=== PATIENT | female | born 1955 | race Caucasian/White ===

== ENCOUNTER 2016-11-30 19:36 | Emergency (ER) | payer MEDICARE, BC ==
[2016-11-30 19:44] VITALS: BP 170/81
--- NOTE | 2016-11-30 19:54 | ERNOTE ---
Upper Extremity HPI - Narrative Date of Service: 11/30/16 - General Extremities Pain Location: shoulder: right Time Seen by Provider: 11/30/16 19:46 Source: patient Exam Limitations: no limitations - Immun/Allergies/Home Medications Immunizations: IMMUNIZATION HX Immunizations Up to Date Yes History of Influenza Vaccine Yes Hx Pneumococcal Vaccination Yes Allergies/Adverse Reactions: Allergies Allergy/AdvReac Type Severity Reaction Status Date / Time mirtazapine [From Remeron] AdvReac Mild insomnia, Verified 11/30/16 19:43 nausea Home Medications: HOME MEDICATIONS Aspirin 325 mg PO DAILY 12/08/12 [Last Taken Unknown] Atorvastatin Calcium 20 mg PO DAILY 12/08/12 [Last Taken Unknown] Mycophenolate Mofetil [Cellcept] 500 mg PO BID 12/14/14 [Last Taken Unknown] Tacrolimus Anhydrous [Prograf] 0.5 mg PO BID 12/14/14 [Last Taken Unknown] predniSONE [Prednisone] 5 mg PO DAILY 12/14/14 [Last Taken Unknown] Cholecalciferol (Vitamin D3) [Vitamin D3] 50,000 unit PO 2XW 02/21/15 [Last Taken Unknown] Ferrous Sulfate [Iron] 325 mg PO TID 03/05/15 [Last Taken Unknown] Multivitamin [Poly-Vitamin] 1 each PO DAILY 03/05/15 [Last Taken Unknown] Estrogens, Conjugated [Premarin Cream] 1 appl VG 3XW 04/05/15 [Last Taken Unknown] Oxyquinoline/Sod.lauryl Sulfat [Trimo-Monk Jelly] 113.4 gm VG 2XW 04/05/15 [Last Taken Unknown] Sucralfate [Carafate] 1 gm PO BID 04/05/15 [Last Taken Unknown] Calcium Carbonate [Tums] 1,000 mg PO QID #120 tab.chew 04/09/15 [Last Taken Unknown] Cefuroxime Axetil [Ceftin] 500 mg PO BID #60 tab 04/09/15 [Last Taken Unknown] Magnesium Oxide [Mag-Ox 400] 400 mg PO QID #120 tablet 04/09/15 [Last Taken Unknown] Metoprolol Tartrate [Lopressor] 50 mg PO BID #60 tablet 04/09/15 [Last Taken Unknown] - History of Present Illness Narrative: Pt. comes in with c/o R shoulder decreased mobility for an hour. Pt. states tath she was making a bed and all of a sudden could not lift her arm. Pt. denies any pain, numbness, ot tingling. Pt. denies any alleviating factors or prehospital treatment. Pt. is a kidney transplant pt and has a hx of fractured shoulder repair with ORIF. Review of Systems - Review of Systems Constitutional: Present: no symptoms reported. Absent: recent illness, fever, chills, weakness, fatigue EYE: Present: no symptoms reported ENT: Present: no symptoms reported Respiratory: Present: no symptoms reported. Absent: shortness of breath, cough , wheezing Cardiology: Present: no symptoms reported. Absent: chest pain, palpitations, edema Gastrointestinal/Abdominal: Present: no symptoms reported. Absent: nausea, vomiting, diarrhea Genitourinary: Present: no symptoms reported Musculoskeletal: Present: other - R shoulder decreased ROM Skin: Present: no symptoms reported. Absent: rash, change in color Neurological: Present: no symptoms reported. Absent: headache, dizziness/light- headedness, numbness, tingling All Other Systems: All systems neg except as marked - Patient's Past Medical History Patient History - Medical: Anemia, Cataracts, Depression, GERD, Renal Failure Patient History - Cardiac/Respiratory: Angina, Arrhythmias, Hypertension, Hyperlipidemia, Myocardial Infarction Patient History - Cancer: No Hx of Cancer Patient History - Surgical Procedures: Appendectomy, Cataracts, Colonoscopy, Cardiac stent, Tubal Ligation, Other Patient History - Other: None - Family History Mother Family History - Medical: , Alzheimer's Disease Father Family History - Medical: Family History - Cardiac/Respiratory: Myocardial Infarction - Social History Living Situations: home Abuse History: No History of abuse Psych History: No pertinent hx Smoking Status: Former smoker Alcohol Use: none Drug Use: none - Immunizations Immunizations Up to Date: Yes Hx Pneumococcal Vaccination: Yes History of Influenza Vaccine: Yes Physical Exam - Physical Exam General Appearance: Present: wd/wn, alert, no apparent distress Eye Exam: Normal inspection: bilateral, PERRL: bilateral, EOMI: bilateral Neck: Present: normal inspection Respiratory: Present: no respiratory distress, normal breath sounds, no accessory muscle use, chest nontender, lungs clear Cardiovascular/Chest: Present: regular rate, rhythm, no murmur, normal peripheral pulses Extremity Exam: Present: normal inspection, non-tender, normal range of motion, no edema, bony tenderness - Humoral head Neurological Exam: Present: alert, oriented, normal mood/affect, no motor/ sensory deficits Skin Exam: Present: normal color, warm/dry. Absent: pallor, skin rash ED Progress - Date and Time Seen: Date and Time: 11/30/16 20:38 There is no muscle shortening in shoulder but humerus is definitly sublexed inferiorly so will put pt. in sling and have her follow up with ortho. - Vital Signs Patient's Vital Signs:: I have reviewed the patient's vital signs. Vital Signs: Vital Signs 11/30/16 19:37 Temperature 36.8 C Pulse Rate 62 Respiratory 18 Rate Blood Pressure 170/81 O2 Sat by Pulse 99 Oximetry - X-Ray X-Ray #1 X-Ray: shoulder Interpretation: Reviewed by me X-ray Comments: inferiorly subleded humeral head. No obvious acute ossious abnormality - Progress/Reassessment Chief Complaint: Shoulder Injury/Pain Progress:: Pain free at discharge Departure Clinical Impression: Shoulder subluxation, right Qualifiers: Encounter type: initial encounter Qualified Code(s): S43.001A - Unspecified subluxation of right shoulder joint, initial encounter - Departure Disposition: Home self-care Condition: Good Instructions: Biceps Tendon Subluxation-MIRELA Acosta for Routine Care of Injuries, [id number] Additional Instructions: Please call orthopedics for appointment tomorrow morning they will see you sometime this week. Please wear sling at all times. Referrals: Philip Mason MD [Staff Physician] -
== END 2016-11-30 21:00 | disposition home or self-care (01) ==
LOC: ER 19:36
DX: S43.001A Unspecified subluxation of right shoulder joint, initial encounter (principal); Z87.891 Personal history of nicotine dependence

== ENCOUNTER 2018-12-31 16:24 | Observation (INO) ==
[2018-12-31] MEDS ORDERED: MORPHINE SULFATE 2 MG/ML DISP.SYRIN IV ONE (16:41)
[2018-12-31] MEDS ORDERED: ASPIRIN 81 MG TAB.CHEW PO ONE (16:41)
[2018-12-31] MEDS ORDERED: NITROGLYCERIN 0.4 MG/TAB BTL SL ONE (16:41)
[2018-12-31] MEDS ORDERED: DILTIAZEM HCL 5 MG/ML VIAL IV ONE (16:41)
[2018-12-31] MEDS ORDERED: DILTIAZEM HCL 125 MG in DEXTROSE 5 % IN WATER 100 ML IV PRN ×2 (16:54)
[2018-12-31 16:57] LABS: Hematocrit 33.6 % (37.0-47.0); Hemoglobin 10.3 gm/dL (12.5-16.0); Mean Cell Volume 106.3 fl (78-100); Mean Corpuscular Hemoglobin 32.6 pg (27-31); Mean Corpuscular Hgb Conc 30.7 g/dl (32-36); Mean Platelet Volume 11.3 fl (8-12.5); Neutrophil # 6.7 K/mm3 (1.3-6.0); Neutrophil % 66.6 % (42-75.0); Platelet Count 148 K/mm3 (150-450); Red Blood Count 3.16 M/mm3 (4.2-5.4); White Blood Count 10.1 K/mm3 (4.0-10.5)
[2018-12-31 17:18] LABS: ALT 20 U/L (19-67); AST 23 U/L (0-48); Albumin * 3.5 gm/dl (3.4-5.0); Alkaline Phosphatase * 88 U/L (50-170); Anion Gap 19.6 mmol/L (6.8-13.8); BUN/Creatinine Ratio 11.6 (9.0-21.6); Bilirubin, Total 0.4 mg/dL (0.0-1.1); Blood Urea Nitrogen 17 mg/dL (3-23); Ca. Corrected For Albumin 7.5 mg/dL (8.4-10.2); Calcium * 7.4 mg/dL (7.9-10.9); Chloride 104 mmol/L (97-106); Glucose * 119 mg/dL (70-110); Magnesium 0.6 mg/dL (1.2-2.8); Potassium 3.6 mmol/L (3.4-4.6); Sodium 139 mmol/L (132-142); TSH * 1.421 uIU/mL (0.358-3.74); Total Protein 6.3 gm/dL (6.2-8.2); Troponin I Less than 0.017 ng/mL (0.00-0.10)
[2018-12-31] MEDS ORDERED: MAGNESIUM SULFATE IN WATER 50 ML IV ONE (18:00)
--- NOTE | 2018-12-31 18:56 | ERNOTE ---
Chest Pain/Cardiac HPI Date of Service: 12/31/18 Chief Complaint: Chest Pain Time Seen by Provider: 12/31/18 16:36 Source: patient Exam Limitations: no limitations Immunizations: IMMUNIZATION HX Immunizations Up to Date Yes History of Influenza Vaccine Yes Hx Pneumococcal Vaccination Yes Allergies/Adverse Reactions: Allergies mirtazapine [From Remeron] Adverse Reaction (Mild, Verified 12/31/18 16:32) insomnia, nausea Home Medications: HOME MEDICATIONS Mycophenolate Mofetil [Cellcept] 500 mg PO BID 12/14/14 [Last Taken Unknown] Tacrolimus Anhydrous [Prograf] 0.5 mg PO BID 12/14/14 [Last Taken Unknown] predniSONE [Prednisone] 5 mg PO DAILY 12/14/14 [Last Taken Unknown] aspirin 81 mg chewable tablet 81 mg PO DAILY 12/17/17 [Last Taken Unknown] atorvastatin 20 mg tablet 20 mg PO DAILY #90 tab 05/27/18 [Last Taken Unknown] pantoprazole 40 mg tablet,delayed release 40 mg PO DAILY 90 Days #90 tab 06/23/18 [Last Taken Unknown] ergocalciferol (vitamin D2) 50,000 unit capsule 50,000 unit PO Q2W #14 cap 07/09/18 [Last Taken Unknown] enalapril maleate 10 mg tablet 10 mg PO DAILY #30 tab 07/30/18 [Last Taken Unknown] metoprolol tartrate 50 mg tablet 50 mg PO DAILY #30 tab 07/30/18 [Last Taken Unknown] ferrous sulfate 325 mg (65 mg iron) tablet 325 mg PO TID #270 tab 09/23/18 [Last Taken Unknown] Calcium Carbonate [Tums] 1,000 mg PO QID PRN 12/31/18 [Last Taken Unknown] Narrative: Patient began to have left sided anterior chest pain an hour ago. Never had anything like this before. Antimony a little lightheaded with it. No pleuritic pain. Mild SOB. No nausea or diaphoresis. Constant, no radiation. Has not had this type of pain before. nothing makes it better or worse. Timing: constant Severity/Quality: moderate Location: left chest Chest Pain Radiation: no radiation Activities at Onset: none Modifying Factors - Improves: Present: nothing Modifying Factors - Worsens: Present: nothing Nitro Today/Relief: no nitro taken today Associated Symptoms: Absent: syncope, cough, diaphoresis, fever/chills Prior Chest Pain/Cardiac Workup: Reports: other - patient denies stents or prior heart attack but this is noted inteh chart Prior Treatment: Denies: recently seen Review of Systems - Review of Systems Constitutional: Absent: fever ENT: Absent: sore throat Respiratory: Present: shortness of breath Cardiology: Present: chest pain Gastrointestinal/Abdominal: Absent: abdominal pain Genitourinary: Absent: dysuria Neurological: Absent: weakness All Other Systems: All systems neg except as marked Medical History (Updated 12/31/18 @ 18:47 by Tomi Bee MD) Anemia, iron deficiency Onset Date: ~01/06/15 Anemia Onset Date: Unknown Arrhythmia Onset Date: Unknown Depression Onset Date: ~12/01/14 Essential hypertension Onset Date: Unknown Heart murmur Onset Date: Unknown Hypercholesterolemia Onset Date: Unknown Hyperlipidemia Onset Date: Unknown Hypovitaminosis D Onset Date: ~01/06/15 PUD (peptic ulcer disease) Onset Date: Unknown Renal failure, chronic Onset Date: ~07/03/09 DR CONLEY Stable angina Onset Date: Unknown Uterovaginal prolapse, incomplete Onset Date: Unknown Blood transfusion, without reported diagnosis Onset Date: ~06/25/09 [facility] 2014 Cystocele with uterine prolapse Onset Date: Unknown Diarrhea Onset Date: ~03/16/15 Gastritis Onset Date: ~03/16/15 Interstitial nephritis Onset Date: Unknown Myocardial infarction Onset Date: ~1999 dr ulrich [facility] Rectocele Onset Date: Unknown Right shoulder injury Onset Date: ~07/26/01 dr collins right shoulder injury slipping on ice Urinary tract infection Onset Date: ~07/02/15 Surgical History: Surgical History (Updated 11/02/18 @ 12:51 by PAUL Contreras) Fitting and adjustment of pessary Onset Date: Unknown H/O abdominal aortic aneurysm repair Onset Date: Unknown H/O mastectomy Onset Date: Unknown H/O shoulder surgery Onset Date: ~2001 humerus fracture with pin placement Dr. Collins History of appendectomy Onset Date: Unknown History of cardiac catheterization Onset Date: ~1999 Dr Ulrich [facility] History of cataract surgery Onset Date: ~12/13/12 12/13/12 left, 02/07/13 right History of cervical biopsy Onset Date: Unknown History of colonoscopy Onset Date: ~04/25/10 [place] 2010 hyperplastic, 2015 negative recheck 10 years History of endoscopy Onset Date: Unknown History of esophagogastroduodenoscopy (EGD) Onset Date: Unknown History of hysterectomy Onset Date: Unknown History of open reduction and internal fixation (ORIF) procedure Onset Date: ~07/27/01 dr collins humeral head fracture and ORIF right shoulder History of oral surgery Onset Date: ~2010 all teeth pulled and dentures placed History of removal of retained hardware Onset Date: ~12/16/[address] collins History of tubal ligation Onset Date: ~09/23/01 Dr. Cortes Hx of cholecystectomy Onset Date: Unknown Hx of tonsillectomy Onset Date: Unknown Kidney transplant recipient Onset Date: ~05/04/12 Kidney transplant status Onset Date: ~11/12/11 S/P dialysis catheter insertion Onset Date: Unknown Family History: Family History (Updated 12/12/17 @ 09:14 by Marycruz Au [facility]) Brother Alive and well Father , 62 Heart disease Coronary artery disease Mother , 79 Alzheimers disease Sister Hx of heart artery stent 2 sisters 1 w/ heart stent Social History: (Last Reviewed 12/31/18 @ 18:53 by Tomi Bee MD) Social History: adopted: No foster care: No fpc: No Marital status: / lives independently: Yes household members: children number of children: 3 caregiver/support person: Yes current occupational status: employed 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 [employer] current occupational exposures/hazards: No Highest education level completed: high school graduate Service: No Tobacco: Smoking Status: Never smoker Tobacco: How many years used: 25 Alcohol: alcohol intake: former Substance Use: substance use type: does not use Dietary Habits: caffeine: No Exercise: Physical activity type: other Personal Safety: victim of physical abuse: No victim of emotional abuse: No Physical Exam - Physical Exam General Appearance: Present: alert, no apparent distress Head Exam: Present: normal inspection, no evidence of injury Eye Exam: Normal inspection: bilateral, PERRL: bilateral Ears, Nose, Throat: Present: normal ENT inspection Neck: Present: normal inspection Respiratory: Present: no respiratory distress, normal breath sounds, no accessory muscle use, chest nontender, lungs clear Cardiovascular/Chest: Present: normal peripheral pulses, tachycardia, irregularly irregular Gastrointestinal/Abdominal: Present: normal bowel sounds, nontender, nondistended, soft Back Exam: Absent: CVA tenderness (R), CVA tenderness (L) Extremity Exam: Present: normal inspection, no edema Neurological Exam: Present: alert, no motor/sensory deficits Skin Exam: Present: normal color, warm/dry Progress - Results and Orders Patient's Lab Results:: I have reviewed the patient's lab results. - Vital Signs Patient's Vital Signs:: I have reviewed the patient's vital signs. Vital Signs: Vital Signs 12/31/18 16:25 12/31/18 16:43 12/31/18 16:50 Temperature 36.2 C Pulse Rate 126 H 123 H 135 H Respiratory Rate 17 24 H Blood Pressure 149/102 H 140/71 140/71 O2 Sat by Pulse Oximetry 100 100 12/31/18 16:51 12/31/18 16:55 12/31/18 16:59 Temperature Pulse Rate 129 H 106 H 96 Respiratory Rate 27 H 24 H Blood Pressure 115/54 83/41 L 88/41 L O2 Sat by Pulse Oximetry 100 100 100 12/31/18 17:02 12/31/18 17:05 12/31/18 17:18 Temperature Pulse Rate 103 H 102 H 98 Respiratory Rate 19 22 H 30 H Blood Pressure 73/39 L 71/43 L 102/43 O2 Sat by Pulse Oximetry 100 100 100 12/31/18 17:20 12/31/18 17:22 Temperature Pulse Rate 79 97 Respiratory Rate 26 H 30 H Blood Pressure 103/54 102/47 O2 Sat by Pulse Oximetry 100 100 - EKG EKG #1 EKG read: Interp. by me EKG Comments: A fib RVR, non-specific ST/T wave changes, no STEMI EKG #2 EKG: atrial fibrillation EKG read: Interp. by me EKG Comments: A fib, rate improved to 88. Non-specific changes, improved from prior no STEMI noted. - X-Ray X-Ray #1 X-Ray: chest Interpretation: Interp. by me X-ray Comments: No real time radiology reads. No acute process by my interp. - Progress/Reassessment Chief Complaint: Chest Pain Progress Note-Subjective: 12/31/18 18:54 Patient given cardizem ASA and NTG with normalization of rate and resolution of chest pain. Nothing at this point to suggest STEMI or PE or aortic dissection. I spoke with Dr Romero who saw the patient in the ED and admitted him to the hospital. Departure Clinical Impression: Atrial fibrillation with RVR, Chest pain, Hypomagnesemia - Departure Disposition: Still a patient Condition: Stable
--- NOTE | 2018-12-31 19:19 | HP ---
Chief Complaint - Chief Complaint Date of Service: 12/31/18 Time of Service: 18:00 Chief Complaint: Chest pain x1 day History of Present Illness: 3-year-old female with a past medical history of anemia, arrhythmia, hypertension, depression, hyperlipidemia, myocardial infarct, chronic renal failure presents complaints of substernal chest pain x1 day. She states she was sitting in her home when she began having substernal chest pain which was associated with shortness of breath and dizziness. She presented to the emergency department and was found to be in A. fib with RVR. She was started on a Cardizem drip. She was also found to have low magnesium of 0.6 he was given magnesium in the emergency department. She responded well to the Cardizem drip and will be admitted for further evaluation and monitoring. Medical History (Updated 12/31/18 @ 18:47 by Tomi Bee MD) Anemia, iron deficiency Onset Date: ~01/06/15 Anemia Onset Date: Unknown Arrhythmia Onset Date: Unknown Depression Onset Date: ~12/01/14 Essential hypertension Onset Date: Unknown Heart murmur Onset Date: Unknown Hypercholesterolemia Onset Date: Unknown Hyperlipidemia Onset Date: Unknown Hypovitaminosis D Onset Date: ~01/06/15 PUD (peptic ulcer disease) Onset Date: Unknown Renal failure, chronic Onset Date: ~07/03/09 DR CONLEY Stable angina Onset Date: Unknown Uterovaginal prolapse, incomplete Onset Date: Unknown Blood transfusion, without reported diagnosis Onset Date: ~06/25/09 [facility] and 2014 Cystocele with uterine prolapse Onset Date: Unknown Diarrhea Onset Date: ~03/16/15 Gastritis Onset Date: ~03/16/15 Interstitial nephritis Onset Date: Unknown Myocardial infarction Onset Date: ~1999 dr ulrich [facility] Rectocele Onset Date: Unknown Right shoulder injury Onset Date: ~07/26/01 dr collins right shoulder injury slipping on ice Urinary tract infection Onset Date: ~07/02/15 Surgical History: Surgical History (Updated 11/02/18 @ 12:51 by PAUL Contreras) Fitting and adjustment of pessary Onset Date: Unknown H/O abdominal aortic aneurysm repair Onset Date: Unknown H/O mastectomy Onset Date: Unknown H/O shoulder surgery Onset Date: ~2001 humerus fracture with pin placement Dr. Collins History of appendectomy Onset Date: Unknown History of cardiac catheterization Onset Date: ~[address] [facility] History of cataract surgery Onset Date: ~12/13/12 12/13/12 left, 02/07/13 right History of cervical biopsy Onset Date: Unknown History of colonoscopy Onset Date: ~04/25/10 Josiahan 2010 hyperplastic, 2015 negative recheck 10 years History of endoscopy Onset Date: Unknown History of esophagogastroduodenoscopy (EGD) Onset Date: Unknown History of hysterectomy Onset Date: Unknown History of open reduction and internal fixation (ORIF) procedure Onset Date: ~07/27/01 dr collins humeral head fracture and ORIF right shoulder History of oral surgery Onset Date: ~2010 all teeth pulled and dentures placed History of removal of retained hardware Onset Date: ~12/16/[address] collins History of tubal ligation Onset Date: ~09/23/01 Dr. Cortes Hx of cholecystectomy Onset Date: Unknown Hx of tonsillectomy Onset Date: Unknown Kidney transplant recipient Onset Date: ~05/04/12 Kidney transplant status Onset Date: ~11/12/11 S/P dialysis catheter insertion Onset Date: Unknown Family History: Family History (Updated 12/12/17 @ 09:14 by Marycruz Au CMA) Brother Alive and well Father , 62 Heart disease Coronary artery disease Mother , 79 Alzheimers disease Sister Hx of heart artery stent 2 sisters 1 w/ heart stent Social History: (Last Reviewed 12/31/18 @ 18:53 by Tomi Bee MD) Social History: adopted: No foster care: No retirement: No Marital status: / lives independently: Yes household members: children number of children: 3 caregiver/support person: Yes current occupational status: employed 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 [employer] current occupational exposures/hazards: No Highest education level completed: high school graduate Service: No Tobacco: Smoking Status: Never smoker Tobacco: How many years used: 25 Alcohol: alcohol intake: former Substance Use: substance use type: does not use Dietary Habits: caffeine: No Exercise: Physical activity type: other Personal Safety: victim of physical abuse: No victim of emotional abuse: No Review Of Systems (GEN) - Review of Systems Generalized/Overall Review: Absent: Chills, Fever EENTM: Absent: Eye Pain Respiratory: Present: Shortness of Breath Cardiac: Present: Chest Pain Abdominal: Absent: Abdominal Pain Neurological: Present: Other - Dizziness Misc: All systems neg except as marked Immunizations: IMMUNIZATION HX Immunizations Up to Date Yes History of Influenza Vaccine Yes Hx Pneumococcal Vaccination Yes Allergies/Adverse Reactions: Allergies Allergy/AdvReac Type Severity Reaction Status Date / Time mirtazapine [From Remeron] AdvReac Mild insomnia, Verified 12/31/18 16:32 nausea Home Medications: HOME MEDICATIONS Mycophenolate Mofetil [Cellcept] 500 mg PO BID 12/14/14 [Last Taken Unknown] Tacrolimus Anhydrous [Prograf] 0.5 mg PO BID 12/14/14 [Last Taken Unknown] predniSONE [Prednisone] 5 mg PO DAILY 12/14/14 [Last Taken Unknown] aspirin 81 mg chewable tablet 81 mg PO DAILY 12/17/17 [Last Taken Unknown] atorvastatin 20 mg tablet 20 mg PO DAILY #90 tab 05/27/18 [Last Taken Unknown] pantoprazole 40 mg tablet,delayed release 40 mg PO DAILY 90 Days #90 tab 06/23/18 [Last Taken Unknown] ergocalciferol (vitamin D2) 50,000 unit capsule 50,000 unit PO Q2W #14 cap 07/09/18 [Last Taken Unknown] enalapril maleate 10 mg tablet 10 mg PO DAILY #30 tab 07/30/18 [Last Taken Un known] metoprolol tartrate 50 mg tablet 50 mg PO DAILY #30 tab 07/30/18 [Last Taken Unknown] ferrous sulfate 325 mg (65 mg iron) tablet 325 mg PO TID #270 tab 09/23/18 [Last Taken Unknown] Calcium Carbonate [Tums] 1,000 mg PO QID PRN 12/31/18 [Last Taken Unknown] Exam - Exam Vital Signs: Vital Signs - Last Taken Temp 36.5 C 12/31/18 18: Pulse 112 H 12/31/18 18:40 Resp 13 12/31/18 18:40 BP 118/41 12/31/18 18:40 Pulse Ox 100 12/31/18 18:40 Constitutional: Present: Alert, Cooperative, Well developed, Well nourished, No distress, Mild distress, Middle aged ENT Exam: Present: hearing grossly normal, moist mucous membranes Eye Exam: bilateral eye: normal inspection, PERRL, EOMI Neck: Present: non-tender, trachea midline. Absent: lymphadenopathy (R), lymphadenopathy (L) Back Exam: Present: normal inspection, no CVA tenderness, no vertebral tenderness Respiratory: Present: chest non-tender, lungs clear, no respiratory distress, no accessory muscle use, No wheezing. Absent: crackles, rhonchi Cardiovascular/Chest: Present: normal peripheral pulses, regular rate, rhythm, no edema, no murmur Peripheral Pulses: dorsalis-pedis (R): 2+, dorsalis-pedis (L): 2+ Abdomen: Present: Normal bowel sounds, soft, nontender Extremity: Present: non-tender, no pedal edema Skin Exam: Present: normal color, warm/dry Neurologic: Present: alert, normal mood/affect, dizzy/light-headedness Appearance: Present: appropriate appearance, appropriate insight Eye contact: Present: cooperative, good eye contact Thoughts: Present: normal thought pattern, normal mood /affect Diagnostic Studies: Abnormal Lab Results 12/31/18 12/31/18 Range/Units 16:50 16:50 RBC 3.16 L (4.2-5.4) M/mm3 Hgb 10.3 L (12.5-16.0) gm/dL Hct 33.6 L (37.0-47.0) % MCV 106.3 H (78-100) fl MCH 32.6 H (27-31) pg MCHC 30.7 L (32-36) g/dl Plt Count 148 L (150-450) K/mm3 Immature Gran % (Auto) 0.60 H (0.001-0.429) % Immature Gran # (Auto) 0.06 H (0.000-0.0310) K/mm3 Neutrophils # 6.7 H (1.3-6.0) K/mm3 Carbon Dioxide 19.0 L (24-32.6) mmol/L Anion Gap 19.6 H (6.8-13.8) mmol/L Creatinine 1.46 H (0.4-1.4) mg/dL Est GFR (Non-Af Amer) 38 L D (60-130) mL/min Random Glucose 119 H (70-110) mg/dL Calcium 7.4 L (7.9-10.9) mg/dL Calcium Adj for Albumin 7.5 L (8.4-10.2) mg/dL Magnesium 0.6 L (1.2-2.8) mg/dL Laboratory Results WBC 10.1 K/mm3 (4.0-10.5) 12/31/18 16:50 RBC 3.16 M/mm3 (4.2-5.4) L 12/31/18 16:50 Hgb 10.3 gm/dL (12.5-16.0) L 12/31/18 16:50 Hct 33.6 % (37.0-47.0) L 12/31/18 16:50 MCV 106.3 fl (78-100) H 12/31/18 16:50 MCH 32.6 pg (27-31) H 12/31/18 16:50 MCHC 30.7 g/dl (32-36) L 12/31/18 16:50 RDW 13.0 % (11.5-14.0) 12/31/18 16:50 Plt Count 148 K/mm3 (150-450) L 12/31/18 16:50 MPV 11.3 fl (8-12.5) 12/31/18 16:50 Immature Gran % (Auto) 0.60 % (0.001-0.429) H 12/31/18 16:50 Immature Gran # (Auto) 0.06 K/mm3 (0.000-0.0310) H 12/31/18 16:50 66.6 % (42-75.0) 12/31/18 16:50 28.7 % (20-51) 12/31/18 16:50 3.7 % (0.0-9) 12/31/18 16:50 0.2 % (0.0-3.0) 12/31/18 16:50 0.2 % (0.0-1.0) 12/31/18 16:50 Nucleated RBC % 0.0 k/mm3 (0-1) 12/31/18 16:50 6.7 K/mm3 (1.3-6.0) H 12/31/18 16:50 2.89 k/mm3 (1.5-3.5) 12/31/18 16:50 0.4 k/mm3 (0.0-1.0) 12/31/18 16:50 0.0 k/mm3 (0.0-0.7) 12/31/18 16:50 Absolute Basophils 0.0 k/mm3 (0.0-0.1) 12/31/18 16:50 Sodium 139 mmol/L (132-142) 12/31/18 16:50 139 mmol/L (130-142) 12/31/18 16:50 Potassium 3.6 mmol/L (3.4-4.6) 12/31/18 16:50 Chloride 104 mmol/L (97-106) 12/31/18 16:50 Carbon Dioxide 19.0 mmol/L (24-32.6) L 12/31/18 16:50 19.6 mmol/L (6.8-13.8) H 12/31/18 16:50 BUN 17 mg/dL (3-23) 12/31/18 16:50 1.46 mg/dL (0.4-1.4) H 12/31/18 16:50 Est GFR (Non-Af Amer) 38 mL/min (60-130) L D 12/31/18 16:50 11.6 (9.0-21.6) 12/31/18 16:50 119 mg/dL (70-110) H 12/31/18 16:50 Calcium 7.4 mg/dL (7.9-10.9) L 12/31/18 16:50 Calcium Adj for Albumin 7.5 mg/dL (8.4-10.2) L 12/31/18 16:50 Magnesium 0.6 mg/dL (1.2-2.8) L 12/31/18 16:50 0.4 mg/dL (0.0-1.1) 12/31/18 16:50 AST 23 U/L (0-48) 12/31/18 16:50 ALT 20 U/L (19-67) 12/31/18 16:50 88 U/L (50-170) 12/31/18 16:50 Less than 0.017 ng/mL (0.00-0.10) 12/31/18 16:50 6.3 gm/dL (6.2-8.2) 12/31/18 16:50 3.5 gm/dl (3.4-5.0) 12/31/18 16:50 TSH 1.421 uIU/mL (0.358-3.74) 12/31/18 16:50 Assessment/Plan - Narrative Narrative: 3-year-old female with a past medical history of anemia, arrhythmia, hypertension, depression, hyperlipidemia, myocardial infarct, chronic renal failure presents complaints of substernal chest pain x1 day. She states she was sitting in her home when she began having substernal chest pain which was associated with shortness of breath and dizziness. She presented to the emergency department and was found to be in A. fib with RVR. She was started on a Cardizem drip. She was also found to have low magnesium of 0.6 he was given magnesium in the emergency department. She responded well to the Cardizem drip and will be admitted for further evaluation and monitoring. - Assessment/Plan (1) Atrial fibrillation with RVR Problem: Acute (2) Chest pain Problem: Acute Qualifiers: Chest pain type: unspecified Qualified Code(s): R07.9 - Chest pain, unspecified (3) Anemia of chronic disease Problem: Chronic (4) Benign essential hypertension Problem: Chronic (5) Hypomagnesemia Problem: Acute
[2018-12-31] MEDS ORDERED: CALCIUM CARBONATE 500 MG TAB.CHEW PO PRN (19:23)
--- NOTE | 2018-12-31 19:23 | HP ---
Chief Complaint - Chief Complaint Date of Service: 12/31/18 Time of Service: 18:00 Chief Complaint: Chest pain x1 day History of Present Illness: 3-year-old female with a past medical history of anemia, arrhythmia, hypertension, depression, hyperlipidemia, myocardial infarct, chronic renal failure presents complaints of substernal chest pain x1 day. She states she was sitting in her home when she began having substernal chest pain which was associated with shortness of breath and dizziness. She presented to the emergency department and was found to be in A. fib with RVR. She was started on a Cardizem drip. She was also found to have low magnesium of 0.6 he was given magnesium in the emergency department. She responded well to the Cardizem drip and will be admitted for further evaluation and monitoring. Medical History (Updated 12/31/18 @ 19:19 by Birdie Paz MD) Anemia, iron deficiency Onset Date: ~01/06/15 Anemia Onset Date: Unknown Arrhythmia Onset Date: Unknown Depression Onset Date: ~12/01/14 Essential hypertension Onset Date: Unknown Heart murmur Onset Date: Unknown Hypercholesterolemia Onset Date: Unknown Hyperlipidemia Onset Date: Unknown Hypovitaminosis D Onset Date: ~01/06/15 PUD (peptic ulcer disease) Onset Date: Unknown Renal failure, chronic Onset Date: ~07/03/09 DR CONLEY Stable angina Onset Date: Unknown Uterovaginal prolapse, incomplete Onset Date: Unknown Blood transfusion, without reported diagnosis Onset Date: ~06/25/09 [facility] 2014 Cystocele with uterine prolapse Onset Date: Unknown Diarrhea Onset Date: ~03/16/15 Gastritis Onset Date: ~03/16/15 Interstitial nephritis Onset Date: Unknown Myocardial infarction Onset Date: ~1999 dr ulrich [facility] Rectocele Onset Date: Unknown Right shoulder injury Onset Date: ~07/26/01 dr collins right shoulder injury slipping on ice Urinary tract infection Onset Date: ~07/02/15 Surgical History: Surgical History (Updated 11/02/18 @ 12:51 by PAUL Contreras) Fitting and adjustment of pessary Onset Date: Unknown H/O abdominal aortic aneurysm repair Onset Date: Unknown H/O mastectomy Onset Date: Unknown H/O shoulder surgery Onset Date: ~2001 humerus fracture with pin placement Dr. Collins History of appendectomy Onset Date: Unknown History of cardiac catheterization Onset Date: ~1999 Dr Walker [facility] History of cataract surgery Onset Date: ~12/13/12 12/13/12 left, 02/07/13 right History of cervical biopsy Onset Date: Unknown History of colonoscopy Onset Date: ~04/25/10 Josiahan 2010 hyperplastic, 2015 negative recheck 10 years History of endoscopy Onset Date: Unknown History of esophagogastroduodenoscopy (EGD) Onset Date: Unknown History of hysterectomy Onset Date: Unknown History of open reduction and internal fixation (ORIF) procedure Onset Date: ~07/27/01 dr collins humeral head fracture and ORIF right shoulder History of oral surgery Onset Date: ~2010 all teeth pulled and dentures placed History of removal of retained hardware Onset Date: ~12/16/[address] collins History of tubal ligation Onset Date: ~09/23/01 Dr. Cortes Hx of cholecystectomy Onset Date: Unknown Hx of tonsillectomy Onset Date: Unknown Kidney transplant recipient Onset Date: ~05/04/12 Kidney transplant status Onset Date: ~11/12/11 S/P dialysis catheter insertion Onset Date: Unknown Family History: Family History (Updated 12/12/17 @ 09:14 by Marycruz Au CMA) Brother Alive and well Father , 62 Heart disease Coronary artery disease Mother , 79 Alzheimers disease Sister Hx of heart artery stent 2 sisters 1 w/ heart stent Social History: (Last Reviewed 12/31/18 @ 18:53 by Tomi Bee MD) Social History: adopted: No foster care: No snf: No Marital status: / lives independently: Yes household members: children number of children: 3 caregiver/support person: Yes current occupational status: employed 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 [employer] current occupational exposures/hazards: No Highest education level completed: high school graduate Service: No Tobacco: Smoking Status: Never smoker Tobacco: How many years used: 25 Alcohol: alcohol intake: former Substance Use: substance use type: does not use Dietary Habits: caffeine: No Exercise: Physical activity type: other Personal Safety: victim of physical abuse: No victim of emotional abuse: No Review Of Systems (GEN) - Review of Systems Generalized/Overall Review: Absent: Chills, Fever EENTM: Absent: Eye Pain Respiratory: Present: Shortness of Breath Cardiac: Present: Chest Pain, Palpitations Abdominal: Absent: Abdominal Pain Misc: All systems neg except as marked Immunizations: IMMUNIZATION HX Immunizations Up to Date Yes History of Influenza Vaccine Yes Hx Pneumococcal Vaccination Yes Allergies/Adverse Reactions: Allergies Allergy/AdvReac Type Severity Reaction Status Date / Time mirtazapine [From Remeron] AdvReac Mild insomnia, Verified 12/31/18 16:32 nausea Home Medications: HOME MEDICATIONS Mycophenolate Mofetil [Cellcept] 500 mg PO BID 12/14/14 [Last Taken Unknown] Tacrolimus Anhydrous [Prograf] 0.5 mg PO BID 12/14/14 [Last Taken Unknown] predniSONE [Prednisone] 5 mg PO DAILY 12/14/14 [Last Taken Unknown] aspirin 81 mg chewable tablet 81 mg PO DAILY 12/17/17 [Last Taken Unknown] atorvastatin 20 mg tablet 20 mg PO DAILY #90 tab 05/27/18 [Last Taken Unknown] pantoprazole 40 mg tablet,delayed release 40 mg PO DAILY 90 Days #90 tab 06/23/18 [Last Taken Unknown] ergocalciferol (vitamin D2) 50,000 unit capsule 50,000 unit PO Q2W #14 cap 07/09/18 [Last Taken Unknown] enalapril maleate 10 mg tablet 10 mg PO DAILY #30 tab 07/30/18 [Last Taken Unknown] metoprolol tartrate 50 mg tablet 50 mg PO DAILY #30 tab 07/30/18 [Last Taken Unknown] ferrous sulfate 325 mg (65 mg iron) tablet 325 mg PO TID #270 tab 09/23/18 [Last Taken Unknown] Calcium Carbonate [Tums] 1,000 mg PO QID PRN 12/31/18 [Last Taken Unknown] Exam - Exam Vital Signs: Vital Signs - Last Taken Temp 36.5 C 12/31/18 18:19 Pulse 112 H 12/31/18 18:40 Resp 13 12/31/18 18:40 BP 118/41 12/31/18 18:40 Pulse Ox 100 12/31/18 18:40 Constitutional: Present: Alert, Cooperative, Well developed, Well nourished, No distress ENT Exam: Present: hearing grossly normal, moist mucous membranes Eye Exam: bilateral eye: normal inspection, PERRL, EOMI Neck: Present: trachea midline. Absent: lymphadenopathy (R), lymphadenopathy (L) Back Exam: Present: normal inspection, no CVA tenderness, no vertebral tenderness Respiratory: Present: lungs clear, no respiratory distress, no accessory muscle use, No wheezing. Absent: crackles, rhonchi Cardiovascular/Chest: Present: normal peripheral pulses, no chest tenderness, no edema, no murmur, irregularly irregular Peripheral Pulses: dorsalis-pedis (R): 2+, dorsalis-pedis (L): 2+ Abdomen: Present: Normal bowel sounds, soft, nontender, nondistended Extremity: Present: non-tender, no pedal edema Skin Exam: Present: normal color, warm/dry Neurologic: Present: alert, normal mood/affect, dizzy/light-headedness Appearance: Present: appropriate appearance Eye contact: Present: cooperative Thoughts: Present: normal thought pattern, normal mood /affect Diagnostic Studies: Abnormal Lab Results 12/31/18 12/31/18 Range/Units 16:50 16:50 RBC 3.16 L (4.2-5.4) M/mm3 Hgb 10.3 L (12.5-16.0) gm/dL Hct 33.6 L (37.0-47.0) % MCV 106.3 H (78-100) fl MCH 32.6 H (27-31) pg MCHC 30.7 L (32-36) g/dl Plt Count 148 L (150-450) K/mm3 Immature Gran % (Auto) 0.60 H (0.001-0.429) % Immature Gran # (Auto) 0.06 H (0.000-0.0310) K/mm3 Neutrophils # 6.7 H (1.3-6.0) K/mm3 Carbon Dioxide 19.0 L (24-32.6) mmol/L Anion Gap 19.6 H (6.8-13.8) mmol/L Creatinine 1.46 H (0.4-1.4) mg/dL Est GFR (Non-Af Amer) 38 L D (60-130) mL/min Random Glucose 119 H (70-110) mg/dL Calcium 7.4 L (7.9-10.9) mg/dL Calcium Adj for Albumin 7.5 L (8.4-10.2) mg/dL Magnesium 0.6 L (1.2-2.8) mg/dL Laboratory Results WBC 10.1 K/mm3 (4.0-10.5) 12/31/18 16:50 RBC 3.16 M/mm3 (4.2-5.4) L 12/31/18 16:50 Hgb 10.3 gm/dL (12.5-16.0) L 12/31/18 16:50 Hct 33.6 % (37.0-47.0) L 12/31/18 16:50 MCV 106.3 fl (78-100) H 12/31/18 16:50 MCH 32.6 pg (27-31) H 12/31/18 16:50 MCHC 30.7 g/dl (32-36) L 12/31/18 16:50 RDW 13.0 % (11.5-14.0) 12/31/18 16:50 Plt Count 148 K/mm3 (150-450) L 12/31/18 16:50 MPV 11.3 fl (8-12.5) 12/31/18 16:50 Immature Gran % (Auto) 0.60 % (0.001-0.429) H 12/31/18 16:50 Immature Gran # (Auto) 0.06 K/mm3 (0.000-0.0310) H 12/31/18 16:50 66.6 % (42-75.0) 12/31/18 16:50 28.7 % (20-51) 12/31/18 16:50 3.7 % (0.0-9) 12/31/18 16:50 0.2 % (0.0-3.0) 12/31/18 16:50 0.2 % (0.0-1.0) 12/31/18 16:50 Nucleated RBC % 0.0 k/mm3 (0-1) 12/31/18 16:50 6.7 K/mm3 (1.3-6.0) H 12/31/18 16:50 2.89 k/mm3 (1.5-3.5) 12/31/18 16:50 0.4 k/mm3 (0.0-1.0) 12/31/18 16:50 0.0 k/mm3 (0.0-0.7) 12/31/18 16:50 Absolute Basophils 0.0 k/mm3 (0.0-0.1) 12/31/18 16:50 Sodium 139 mmol/L (132-142) 12/31/18 16:50 139 mmol/L (130-142) 12/31/18 16:50 Potassium 3.6 mmol/L (3.4-4.6) 12/31/18 16:50 Chloride 104 mmol/L (97-106) 12/31/18 16:50 Carbon Dioxide 19.0 mmol/L (24-32.6) L 12/31/18 16:50 19.6 mmol/L (6.8-13.8) H 12/31/18 16:50 BUN 17 mg/dL (3-23) 12/31/18 16:50 1.46 mg/dL (0.4-1.4) H 12/31/18 16:50 Est GFR (Non-Af Amer) 38 mL/min (60-130) L D 12/31/18 16:50 11.6 (9.0-21.6) 12/31/18 16:50 119 mg/dL (70-110) H 12/31/18 16:50 Calcium 7.4 mg/dL (7.9-10.9) L 12/31/18 16:50 Calcium Adj for Albumin 7.5 mg/dL (8.4-10.2) L 12/31/18 16:50 Magnesium 0.6 mg/dL (1.2-2.8) L 12/31/18 16:50 0.4 mg/dL (0.0-1.1) 12/31/18 16:50 AST 23 U/L (0-48) 12/31/18 16:50 ALT 20 U/L (19-67) 12/31/18 16:50 88 U/L (50-170) 12/31/18 16:50 Less than 0.017 ng/mL (0.00-0.10) 12/31/18 16:50 6.3 gm/dL (6.2-8.2) 12/31/18 16:50 3.5 gm/dl (3.4-5.0) 12/31/18 16:50 TSH 1.421 uIU/mL (0.358-3.74) 12/31/18 16:50 Assessment/Plan - Narrative Narrative: 3-year-old female with a past medical history of anemia, arrhythmia, hypertension, depression, hyperlipidemia, myocardial infarct, chronic renal failure presents complaints of substernal chest pain x1 day. She states she was sitting in her home when she began having substernal chest pain which was associated with shortness of breath and dizziness. She presented to the [facility] department and was found to be in A. fib with RVR. She was started on a Cardizem drip. She was also found to have low magnesium of 0.6 he was given magnesium in the emergency department. She responded well to the Cardizem drip and will be admitted for further evaluation and monitoring. On presentation troponin was negative. - Assessment/Plan (1) Atrial fibrillation with RVR Problem: Acute (2) Chest pain Problem: Acute Qualifiers: Chest pain type: unspecified Qualified Code(s): R07.9 - Chest pain, unspecified (3) Anemia of chronic disease Problem: Chronic (4) Benign essential hypertension Problem: Chronic (5) Hypomagnesemia Problem: Acute
[2018-12-31] MEDS ORDERED: ROSUVASTATIN CALCIUM 10 MG TABLET PO SCH (19:30)
[2018-12-31] MEDS: TACROLIMUS ANHYDROUS 0.5 MG CAPSULE PO SCH (21:37)
[2018-12-31] MEDS: MYCOPHENOLATE MOFETIL 500 MG TABLET PO SCH (21:37)
[2019-01-01 05:59] LABS: Hemoglobin 9.1 gm/dL (12.5-16.0); Mean Cell Volume 102.5 fl (78-100); Mean Corpuscular Hemoglobin 32.2 pg (27-31); Mean Corpuscular Hgb Conc 31.4 g/dl (32-36); Neutrophil # 4.9 K/mm3 (1.3-6.0); Neutrophil % 59.8 % (42-75.0); Platelet Count 179 K/mm3 (150-450); Red Blood Count 2.83 M/mm3 (4.2-5.4); Red Cell Distribution Width 13.1 % (11.5-14.0); White Blood Count 8.3 K/mm3 (4.0-10.5)
[2019-01-01 06:16] LABS: Albumin * 2.6 gm/dl (3.4-5.0); Anion Gap 15.7 mmol/L (6.8-13.8); BUN/Creatinine Ratio 12.1 (9.0-21.6); Bilirubin, Total 0.3 mg/dL (0.0-1.1); Ca. Corrected For Albumin 8.2 mg/dL (8.4-10.2); Calcium * 7.4 mg/dL (7.9-10.9); Carbon Dioxide 20.2 mmol/L (24-32.6); Magnesium 1.3 mg/dL (1.2-2.8); Potassium 3.9 mmol/L (3.4-4.6)
[2019-01-01] MEDS: MYCOPHENOLATE MOFETIL 500 MG TABLET PO SCH (08:25)
[2019-01-01] MEDS: TACROLIMUS ANHYDROUS 0.5 MG CAPSULE PO SCH (08:25)
[2019-01-01 08:30] VITALS: BP 132/62
[2019-01-01] MEDS ORDERED: METOPROLOL TARTRATE 50 MG TABLET PO SCH (09:00)
[2019-01-01] MEDS ORDERED: FERROUS SULFATE 325 MG TABLET PO SCH (09:00)
[2019-01-01] MEDS ORDERED: ASPIRIN 81 MG TAB.CHEW PO SCH (09:00)
[2019-01-01] MEDS ORDERED: PANTOPRAZOLE SODIUM 40 MG TABLET.EC PO SCH (09:00)
[2019-01-01] MEDS ORDERED: predniSONE 5 MG TABLET PO SCH (09:00)
[2019-01-01] MEDS ORDERED: ENALAPRIL MALEATE 5 MG TABLET PO SCH (09:00)
--- NOTE | 2019-01-01 10:01 | DS ---
(1) Atrial fibrillation with RVR Problem: Acute (2) Chest pain Problem: Resolved Qualifiers: Chest pain type: unspecified Qualified Code(s): R07.9 - Chest pain, unspecified (3) Anemia of chronic disease Problem: Chronic (4) Benign essential hypertension Problem: Chronic (5) Hypomagnesemia Problem: Resolved (6) History of kidney transplant Problem: Chronic Description of Stay: 63-year-old female with a past medical history of anemia, arrhythmia, hypertension, depression, hyperlipidemia, myocardial infarct, chronic renal failure presents complaints of substernal chest pain x1 day. She states she was sitting in her home when she began having substernal chest pain which was associated with shortness of breath and dizziness. She presented to the emergency department and was found to be in A. fib with RVR. She was started on a Cardizem. She was also found to have low magnesium of 0.6 he was given magnesium in the emergency department. She responded well to the Cardizem and will be admitted for further evaluation and monitoring. Her BP dropped after getting the cardizem push and nitro. So the cardizem drip was held. She was transferred to the floor. Her chest pain resolved and her dose of metoprolol tartrate was increased to 50 mg twice a day. Her heart rate came down into the 70s and 80s. She ambulated well with the nursing staff with no more chest pain. She is stable to go home today. Her CHADS-VASc score is 2 and she would benefit from anticoagulation. I will start her on Coumadin 5 mg daily. She will be referred to the coumadin clinic for management of her INR. She will follow-up with her primary care doctor in 1 week. 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 Procedures Performed: none Results and Findings: Lab Pending Results 12/31/18 16:50: WBC 10.1, RBC 3.16 L, Hgb 10.3 L, Hct 33.6 L, MCV 106.3 H, MCH 32.6 H, MCHC 30.7 L, RDW 13.0, Plt Count 148 L, MPV 11.3, Immature Gran % (Auto) 0.60 H, Immature Gran # (Auto) 0.06 H, Neutrophils % 66.6, Lymphocytes % 28.7, Monocytes % 3.7, Eosinophils % 0.2, Basophils % 0.2, Nucleated RBC % 0.0, Neutrophils # 6.7 H, Lymphocytes # 2.89, Monocytes # 0.4, Eosinophils # 0.0, Absolute Basophils 0.0 12/31/18 16:50: Sodium 139, Plasma Sodium 139, Potassium 3.6, Chloride 104, Carbon Dioxide 19.0 L, Anion Gap 19.6 H, BUN 17, Creatinine 1.46 H, Est GFR (Non-Af Amer) 38 L D, BUN/Creatinine Ratio 11.6, Random Glucose 119 H, Calcium 7.4 L, Calcium Adj for Albumin 7.5 L, Magnesium 0.6 L, Total Bilirubin 0.4, AST 23, ALT 20, Alkaline Phosphatase 88, Troponin I Less than 0.017, Total Protein 6.3, Albumin 3.5, TSH 1.421 12/31/18 22:50: Troponin I 0.092 01/01/19 06:00: WBC 8.3, RBC 2.83 L, Hgb 9.1 L, Hct 29.0 L, MCV 102.5 H, MCH 32.2 H, MCHC 31.4 L, RDW 13.1, Plt Count 179, MPV 10.0, Immature Gran % (Auto) 0.80 H, Immature Gran # (Auto) 0.07 H, Neutrophils % 59.8, Lymphocytes % 31.7, Monocytes % 6.8, Eosinophils % 0.7, Basophils % 0.2, Nucleated RBC % 0.0, Neutrophils # 4.9, Lymphocytes # 2.62, Monocytes # 0.6, Eosinophils # 0.1, Absolute Basophils 0.0 01/01/19 06:00: Sodium 142, Plasma Sodium 142, Potassium 3.9, Chloride 110 H, Carbon Dioxide 20.2 L, Anion Gap 15.7 H, BUN 14, Creatinine 1.16, Est GFR (Non- Af Amer) 50 L D, BUN/Creatinine Ratio 12.1, Random Glucose 84, Calcium 7.4 L, Calcium Adj for Albumin 8.2 L, Magnesium 1.3, Total Bilirubin 0.3, AST 17, ALT 12 L, Alkaline Phosphatase 72, Total Protein 5.0 L, Albumin 2.6 L Discharge Location: Home Disposition: Home self-care Condition: Stable Discharge Activity: Activity as tolerated Discharge Diet: Low salt, Low fat/chol Referrals: Shmuel Hernandez MD [Primary Care Provider] - Problem Oriented Discharge Instructions to Patient/Family: Hypomagnesemia, Atrial Fibrillation, [id number] Additional Patient Instructions (free text): They will call you with an appointment time on this coming Thursday when the clinic opens. Keep your scheduled appointment with Dr. White this month. Prescriptions (Any new or edited meds): Metoprolol Tartrate [Lopressor] 50 mg PO BID #60 tab Warfarin Sodium 5 mg PO QPM #14 tab Complete Home Medications List: Complete Home Medication List: Mycophenolate Mofetil [Cellcept] 500 mg PO BID 12/14/14 Tacrolimus Anhydrous [Prograf] 0.5 mg PO BID 12/14/14 predniSONE [Prednisone] 5 mg PO DAILY 12/14/14 aspirin 81 mg chewable tablet 81 mg PO DAILY 12/17/17 atorvastatin 20 mg tablet 20 mg PO DAILY #90 tab 05/27/18 pantoprazole 40 mg tablet,delayed release 40 mg PO DAILY 90 Days #90 tab 06/23/18 ergocalciferol (vitamin D2) 50,000 unit capsule 50,000 unit PO Q2W #14 cap 07/09/18 enalapril maleate 10 mg tablet 10 mg PO DAILY #30 tab 07/30/18 ferrous sulfate 325 mg (65 mg iron) tablet 325 mg PO TID #270 tab 09/23/18 Calcium Carbonate [Tums] 1,000 mg PO QID PRN 12/31/18 Metoprolol Tartrate [Lopressor] 50 mg PO BID #60 tab 01/01/19 Warfarin Sodium 5 mg PO QPM #14 tab 01/01/19
[2019-01-01] MEDS ORDERED: ROSUVASTATIN CALCIUM 10 MG TABLET PO SCH (21:00)
== END 2019-01-01 11:15 | disposition home or self-care (01) ==
LOC: ER 16:24 → MS 16:24
PROVIDERS: ADMIT Internal Medicine; ATTEND Internal Medicine
CPT/HCPCS: 36415; 71010; 71045; 80053; 83735; 84443; 84484; 85025; 93005; 96365; 96366; 96375; 99284; G0378